=== PATIENT | female | born 1990 | race Caucasian/White ===

== ENCOUNTER 2017-08-06 16:54 | Inpatient (IN) ==
[2017-08-06] MEDS ORDERED: BISACODYL 10 MG SUPP RECTAL PRN (17:03)
[2017-08-06] MEDS ORDERED: WITCH HAZEL PADS 100/JAR TOP PRN (17:03)
[2017-08-06] MEDS ORDERED: OXYTOCIN/LR 30 UNIT/1,000 ML BAG IV ONE (17:03)
[2017-08-06] MEDS ORDERED: MEASLES/MUMPS/RUBELLA VACCINE 0.5 ML VIAL SUBCUT ONE (17:03)
[2017-08-06] MEDS ORDERED: RHO(D) IMMUNE GLOBULIN 300 MCG SYRINGE IM ONE (17:03)
[2017-08-06] MEDS ORDERED: HYDROCORTISONE 2.5% RECTAL CREAM 30 GM TUBE TOP PRN (17:03)
[2017-08-06] MEDS ORDERED: DIPH/TET/ACEL PERT BOOSTER VACCINE 0.5 ML VIAL IM ONE (17:03)
[2017-08-06] MEDS ORDERED: ACETAMINOPHEN 325 MG TABLET PO PRN (17:03)
[2017-08-06] MEDS ORDERED: LANOLIN 50% CREAM 0.3 OZ TUBE TOP PRN (17:03)
[2017-08-06] MEDS ORDERED: ONDANSETRON 4 MG/2 ML VIAL IV PRN (17:03)
[2017-08-06 17:42] LABS: Basophils % 0.2 % (0.0-0.8); Eosinophils # 0.1 10*3/uL (0.0-0.87); Hematocrit 26.3 VOL% (35.7-47.0); Hemoglobin 8.1 GM/DL (12.0-16.0); Immature Granulocytes % 0.4 %; Immature Granulocytes Absolute 0.04 #; Lymphocytes # 1.4 10*3/uL (1.4-4.0); Lymphocytes % 12.5 % (21.3-54.2); Mean Corpuscular HGB Conc 30.8 GM/DL (32-36); Mean Corpuscular Hemoglobin 30 PG (27-34); Mean Corpuscular Volume 95.6 FL (87-102); Mean Platelet Volume 10.5 FL (9.6-12.0); Monocytes # 0.7 10*3/uL (0.11-0.8); Monocytes % 6.5 % (1.7-12.7); Neutrophils # 8.8 10*3/uL (1.4-7.4); Neutrophils % 79.4 % (38.7-73.9); Platelet Count 226 T/CUMM (130-400); Red Blood Count 2.75 MC/CUMM (3.8-5.5); Red Cell Distribution Width 19.9 % (9.3-17.3); White Blood Count 11.1 T/CUMM (4-12)
[2017-08-06 18:03] LABS: Apearance,Urine CLEAR (Clear); Bilirubin,Urine Negative (Negative); Blood, Urine Large mg/dL (Negative); Glucose,Urine (UA) Negative (Negative); Hyaline Casts,Urine 1 /LPF (0-3); Ketones,Urine Negative (Negative); Mucus,Urine Occasional /LPF (Occasional); Nitrite,Urine Negative (Negative); Protein,Urine Negative; RBC,Urine 53 /HPF (0-4); Urine Color Yellow (Yellow); Urine Specific Gravity 1.012 (1.001-1.035); Urine Urobilinogen < 2.0 EU/DL (0.2-1.0); WBC,Urine 4 /HPF (0-6)
[2017-08-06 18:13] LABS: Alanine Aminotransferase 15 U/L (13-56); Albumin 2.4 G/DL (3.4-5.0); Alkaline Phosphatase 95 U/L (45-117); Aspartate Amino Transferase 19 U/L (0-37); Bilirubin,Total < 0.39 MG/DL (0.2-1.0); Blood Urea Nitrogen 9 MG/DL (7-18); Calcium 8.7 MG/DL (8.5-10.1); Glucose 82 MG/DL (74-106); Osmolality,Calculated 280.1 MOS/KG (273-304); Potassium 4.5 MMOL/L (3.5-5.1); Sodium 142 MMOL/L (136-145); Total Protein 5.6 G/DL (6.4-8.3); Uric Acid 4.3 MG/DL (2.6-6.0)
[2017-08-06] MEDS ORDERED: SODIUM CHLORIDE 0.9% 250 ML IV PRN (18:15)
[2017-08-06 18:24] LABS: Barbiturates Screen,Urine Negative (Negative); Benzodiazepines Screen,Urine Negative (Negative); Cannabinoid Screen,Urine Positive (Negative); Opiate Screen,Urine Negative (Negative); Phencyclidine Screen,Urine Negative (Negative)
[2017-08-06] MEDS: SODIUM CHLORIDE 0.9% 1,000 ML IV PRN (19:20)
[2017-08-06 19:43] LABS: HIV Antigen/Antibody Result Nonreactive (Nonreactive); Hepatitis B Surface Ag Quant < 0.10 Index; Hepatitis B Surface Ag Result Negative (Negative)
[2017-08-06] MEDS: IBUPROFEN 800 MG TABLET PO PRN (21:44)
[2017-08-06] MEDS: DOCUSATE SODIUM 100 MG CAPSULE PO SCH (22:27)
[2017-08-07] MEDS: LACTATED RINGERS 1,000 ML IV SCH ×2 (01:38→23:27)
[2017-08-07] MEDS: SODIUM CHLORIDE 0.9% 1,000 ML IV PRN (01:41)
[2017-08-07 06:16] LABS: Basophils % 0.3 % (0.0-0.8); Eosinophils # 0.2 10*3/uL (0.0-0.87); Eosinophils % 1.9 % (0.00-10.9); Hematocrit 29.1 VOL% (35.7-47.0); Hemoglobin 9.6 GM/DL (12.0-16.0); Immature Granulocytes % 0.3 %; Immature Granulocytes Absolute 0.03 #; Lymphocytes # 2.4 10*3/uL (1.4-4.0); Lymphocytes % 25.1 % (21.3-54.2); Mean Corpuscular Hemoglobin 30 PG (27-34); Mean Corpuscular Volume 90.1 FL (87-102); Mean Platelet Volume 10.5 FL (9.6-12.0); Monocytes # 0.8 10*3/uL (0.11-0.8); Monocytes % 7.8 % (1.7-12.7); Neutrophils # 6.2 10*3/uL (1.4-7.4); Neutrophils % 64.6 % (38.7-73.9); Platelet Count 178 T/CUMM (130-400); Red Blood Count 3.23 MC/CUMM (3.8-5.5); Red Cell Distribution Width 18.6 % (9.3-17.3); White Blood Count 9.6 T/CUMM (4-12)
[2017-08-07] MEDS: DOCUSATE SODIUM 100 MG CAPSULE PO SCH ×2 (08:36→21:00)
[2017-08-07] MEDS: FERROUS SULFATE 325 MG TABLET PO SCH (08:36)
[2017-08-07] MEDS: MULTIVITAMIN (PRENATAL) TABLET PO SCH (08:36)
--- NOTE | 2017-08-07 10:45 | OB/GYN History & Physical ---
History of Present Illness Chief complaint: Patient presented to the OB department postdelivery of a premature History of present illness: Ms. Gaitan is a 27 year old female 4 para 4 living 4, JAGJIT 2016 for an estimated gestational age 26 weeks who delivered at home. The patient's history was significant for leg care. She had also been seen at the [facility] where she was diagnosed with a partial abruption. According to the patient's history she stated that she was given steroids and blood and was sent home on bed rest. The patient stated she was at home when she failed to contractions and the next contraction the infant was delivered with the placenta as well. The patient came to the hospital with her infant and the infant is currently in the NICU. The patient is stable with no acute distress at this time. No other history is available other than patient's self reporting. Home Medications Medication Instructions Recorded Confirmed Type Vit 108/Iron/Folic AC 1 tablet PO DIRECTED 08/07/17 08/07/17 History [ One Tablet] Allergies Allergy/AdvReac Type Severity Reaction Status Date / Time No Known Allergies Allergy Verified 08/06/17 17:03 12 point system: reviewed and no additional remarkable complaints except as stated Medical,Surgical,& Family Hx - Medical History Medical History: noncontributory - Surgical History Surgical History: noncontributory - Family History Family History: Reports;: Family Cancer (Paternal grandmother with ovarian), Family Hypertension (Father) - Social History Marital Status: Single Lives With:: Significant Other Functional capacity: independent ambulation [employer] [address] [employer] - Constitutional Vitals: Vital Signs Temp Pulse Pulse Resp BP BP Pulse Ox 08/07/17 08:00 99.3 F 84 16 122/79 08/07/17 06:00 18 08/07/17 05:00 18 08/07/17 04:00 16 08/07/17 03:00 16 08/07/17 02:09 97.4 F L 63 19 100 08/07/17 02:00 16 08/07/17 01:07 97.3 F L 64 16 99 08/07/17 01:00 16 08/07/17 00:08 98.1 F 64 16 107/66 99 08/07/17 00:04 98 F 16 109/68 99 08/07/17 00:00 16 08/06/17 23:04 98.1 F 16 L 16 110/69 100 08/06/17 23:03 98.5 F 86 16 117/77 100 08/06/17 22:34 98.6 F 75 16 99 08/06/17 22:29 98.1 F 90 18 121/77 100 08/06/17 22:24 97.9 F 76 18 116/57 100 08/06/17 22:18 97.9 F 92 H 18 113/59 99 08/06/17 22:00 16 08/06/17 21:46 98.2 F 82 18 134/89 100 08/06/17 21:44 98.2 F 08/06/17 21:42 98.7 F 83 18 134/89 100 08/06/17 20:42 98.2 F 18 135/78 100 08/06/17 20:40 98.6 F 95 H 18 100 08/06/17 20:12 98.5 F 71 19 129/83 08/06/17 20:07 98.8 F 89 97 H 18 122/75 132/86 100 08/06/17 20:02 98.2 F 18 100 08/06/17 20:01 98.2 F 87 18 118/76 100 08/06/17 20:00 18 08/06/17 19:54 98.1 F 79 18 127/80 08/06/17 19:07 98 F 87 20 124/66 08/06/17 18:07 50 L 18 126/64 08/06/17 17:37 50 L 18 126/64 08/06/17 17:07 99.2 F 18 146/63 Pulse Ox 08/07/17 08:00 100 08/07/17 06:00 08/07/17 05:00 08/07/17 04:00 08/07/17 03:00 08/07/17 02:09 08/07/17 02:00 08/07/17 01:07 08/07/17 01:00 08/07/17 00:08 08/07/17 00:04 08/07/17 00:00 08/06/17 23:04 08/06/17 23:03 08/06/17 22:34 08/06/17 22:29 08/06/17 22:24 08/06/17 22:18 08/06/17 22:00 08/06/17 21:46 08/06/17 21:44 08/06/17 21:42 08/06/17 20:42 08/06/17 20:40 08/06/17 20:12 08/06/17 20:07 100 08/06/17 20:02 08/06/17 20:01 08/06/17 20:00 08/06/17 19:54 08/06/17 19:07 08/06/17 18:07 08/06/17 17:37 08/06/17 17:07 98 General appearance: no acute distress - Antepartum / Post Post Exam Breast: bilateral: normal Abdomen obstetrics: Present: bowel sounds normal Vagina: Present: normal moisture, discharge (Light lochia rubra) Uterus exam: Present: enlarged (Fundus firm midline) - Respiratory Respiratory exam: Present: clear to auscultation bilaterally - Cardiovascular Cardiovascular exam: Present: regular rate and rhythm - GI/Abdominal GI/Abdominal exam: Present: normal bowel sounds, soft - Extremities Exam Extremities exam: Present: normal inspection - Neurological Exam Neurological exam: Present: alert, oriented X3, normal gait - Psychiatric Psychiatric exam: Present: normal affect, normal mood - Skin Skin exam: Present: normal color, warm Assessment and Plan (1) Premature delivery before 37 weeks Status: Acute Assessment and plan: Initiate routine orders. Current Visit: Yes Qualifiers: Fetus number: single or unspecified fetus Qualified Code(s): O60.10X0 - labor with delivery, unspecified trimester, not applicable or unspecified Results - Labs CBC & BMP: 08/07/17 05:57 08/06/17 17:24 Quality Measures - VTE Contraindication to Pharmacological VTE Prophylaxis: Clinical assessment deems Pt at low risk, no prophalaxis needed
[2017-08-07] MEDS: IBUPROFEN 800 MG TABLET PO PRN ×2 (13:55→21:30)
[2017-08-08 08:06] VITALS: BP 117/76
[2017-08-08] MEDS: FERROUS SULFATE 325 MG TABLET PO SCH (08:43)
[2017-08-08] MEDS: DOCUSATE SODIUM 100 MG CAPSULE PO SCH (08:43)
[2017-08-08] MEDS: MULTIVITAMIN (PRENATAL) TABLET PO SCH (08:43)
[2017-08-08] MEDS: IBUPROFEN 800 MG TABLET PO PRN (11:44)
--- NOTE | 2017-08-08 13:12 | Discharge Summary ---
Hospital Course - Hospital Course Hospital Course: Postoperatively day #1 Status post delivery of a 26 weeks gestation at home complete with placenta as well. Presently doing well the mother's ambulatory, voiding, positive bowel movements, and pain is absent. [place] is in the nursery and is doing reasonably stable at this time. Mother will be discharged and follow-up in our office or her physician of choice for postoperative contraception. Specialty Discharge - Follow Up or Referrals Follow up with: Donavon Li MD [Physician] - Discharge Plan - Discharge Data Disposition: Disch To Home/Self Care Condition at Discharge: Stable Discharge Diet: advance to your usual diet Activity: resume usual activities as tolerated Hygiene: no restrictions Weight Bearing at Discharge: full weight bearing Driving: no restrictions Contact your physician if you experience:: fever over 101, Bleeding - Discharge Medications No Action Vit 108/Iron/Folic AC [ One Tablet] 1 tablet PO DIRECTED - Follow Up or Referral Follow Up: Donavon Li MD [Physician] - - Forms/Instructions Instructions: Depression (GEN), Perineal Care (DC), Vaginal Delivery (DC), Bleeding (DC) Exam - Constitutional Vitals: Period Temp Pulse Resp BP Sys/Soria Pulse Ox Last 24 Hr 97.4 F-98.4 F 77-98 18-20 97-117/45-81 98-100 Discharge Results Procedures and tests throughout hospitalization: Pending Orders 08/07/17 06:59 Rubella Ab, IgG, S Stat DS: Provider Date of admission: 08/06/17 16:56 Primary care physician: . No PCP Attending physician on admission: Donavon Li MD Consults: 08/06/17 17:04 Consult to Brim Edge Trimmer [CONS] Routine Consult Brim Edge Trimmer: Breast Feeding 08/07/17 23:29 Consult to Case Mgmt/Social Srvs [CONS] Routine Reason for Case Mgmt/Social Srvs: Other Consult Comment: positive drug screen Discharging clinician: Donavon Li MD
--- NOTE | 2017-08-10 18:15 | Pathology Report from [facility] ---
[facility] ACCESSION # : [id number] PATIENT NAME : Gaby Desouza ORDERING DR : CHELSIE MEADE MD CLINICAL HX: IUP @ 26 weeks - Partial abruption - Home delivery - Active labor POST-OP DX: Same SPECIMEN INFO: Placenta GROSS DESCRIPTION: Received fresh labeled with the patients name and consists of a 235 gram placenta which measures 11.0 x 12.0 x 2.5 cm. membranes are hemorrhagic and somewhat translucent. The umbilical cord measures 23.0 cm, contains three vessels and is marginally inserted. The surface is red- bazzi and intact. The maternal surface is shaggy and hemorrhagic with a large area of barbosa-white discoloration (6.5 cm in greatest dimension) noted. Sections submitted: A membranes and cord, B surface, C maternal surface. DIAGNOSIS FOR GABY DESOUZA: PLACENTA, 25 WEEKS GESTATIONAL AGE, DELIVERY: Immature placenta, 235 gms, with accelerated villous maturation. Retroplacental hemorrhage. Placental infarcts, involving approximately 50% of the placental disc. Necrotic membranes. Trivascular umbilical cord 23 cm in length. COLLECTED DATE: 08/09/2017 [facility] REPORT DATE: 08/10/2017 ELECTRONICALLY SIGNED BY: Lizette Lopez M.D. 08/10/2017 - 12:04:18 DIMITRY
== END 2017-08-08 14:00 | disposition home or self-care (01) | DRG 775 ==
LOC: N.LDOUT 16:54 → N.LD 16:56 → EDBD 16:56 → N.OB 08-07 11:49
PROVIDERS: ADMIT Obstetrics & Gynecology; ATTEND Obstetrics & Gynecology